=== PATIENT | female | born 2000 | race American Indian/Alaskan Native ===

== ENCOUNTER 2018-12-20 23:10 | Outpatient (CLI) | payer MEDICAID ==
[~2018-12-20 23:10] MED LIST: LACTATED RINGERS 500 ML IV SCH
[2018-12-20] MEDS ORDERED: LACTATED RINGERS 1,000 ML ONE (23:50)
[2018-12-21 00:02] VITALS: BP 128/65
[2018-12-21 00:09] LABS: Amorphous Crystals,Urine Few; Bilirubin,Urine NEG (Negative); Blood,Urine NEG (Negative); Color,Urine Yellow (Yellow); Mucus,Urine FEW /HPF; Protein,Urine <15 mg/dL mg/dL (Negative); Urobilinogen,Urine < 2.0 mg/dL (<2.0)
== END 2018-12-21 01:07 | disposition home or self-care (01) ==
LOC: TRG 23:10
PROVIDERS: ATTEND Obstetrics & Gynecology
DX: O26.893 Other specified pregnancy related conditions, third trimester (principal); R10.9 Unspecified abdominal pain; R05 Cough; O47.03 False labor before 37 completed weeks of gestation, third trimester; J45.909 Unspecified asthma, uncomplicated; Z3A.36 36 weeks gestation of pregnancy
CPT/HCPCS: 81001; J7120; 59025

== ENCOUNTER 2019-01-16 10:25 | Outpatient (CLI) | payer MEDICAID ==
[2019-01-16] MEDS ORDERED: LACTATED RINGERS 1,000 ML ONE (14:06)
[2019-01-16 16:21] VITALS: BP 126/67
--- NOTE | 2019-01-16 16:44 | Ultrasound Report ---
PROCEDURE: US OB BPP WO NON-STRESS HISTORY: CURT FINDINGS: Biophysical profile was performed. Biophysical profile was 8 of 8. cardiac activity is present at 133 bpm. Amniotic fluid index was 11.4 cm which is normal IMPRESSION: Biophysical profile 8 of 8 This document is electronically signed by Marcus Aguayo MD., Jan 16 2019 04:42:22 PM ET
--- NOTE | 2019-01-16 16:45 | Ultrasound Report ---
PROCEDURE: US OB LIMITED HISTORY: CURT FINDINGS: Real-time ultrasound was performed with attention to the gravid uterus. There is a live int rauterine gestation in cephalic lie. cardiac activity is present at 130 bpm. Amniotic fluid index was 11.4 cm. IMPRESSION: Amniotic fluid index 11.4 cm This document is electronically signed by Marcus Aguayo MD., Jan 16 2019 04:43:15 PM ET
[2019-01-16] MEDS ORDERED: LACTATED RINGERS 1,000 ML IV SCH (17:00)
== END 2019-01-16 16:20 | disposition home or self-care (01) ==
LOC: TRG 10:25
PROVIDERS: ATTEND Obstetrics & Gynecology
DX: O42.92 Full-term premature rupture of membranes, unspecified as to length of time between rupture and onset of labor (principal); O48.0 Post-term pregnancy; Z3A.40 40 weeks gestation of pregnancy
CPT/HCPCS: 59025; 76815; 76819; J7120

== ENCOUNTER 2019-01-19 15:40 | Inpatient (IN) | payer MEDICAID ==
[2019-01-19] MEDS ORDERED: ZOFRAN IV PRN (17:15)
[2019-01-19] MEDS ORDERED: BRETHINE SUB-Q PRN (17:15)
[2019-01-19] MEDS ORDERED: SUBLIMAZE IV PRN (17:15)
[2019-01-19] MEDS ORDERED: BRETHINE IVP PRN (17:15)
[2019-01-19] MEDS ORDERED: MINERAL OIL PO PRN (17:15)
[2019-01-19] MEDS ORDERED: NARCAN 0.4 MG/1 ML IV PRN (17:15)
--- NOTE | 2019-01-19 17:54 | History and Physical Report ---
History of Present Illness Date of examination: 01/19/19 Date of admission: 01/19/19 15:40 Chief complaint: Nonreactive NST; sent from the office History of present illness: Pt is a 18 year old primigravida HINA 01/12/19 at 41w0d who presents for induction of labor after nonreactive NST in the office. She denies vaginal bleeding or leakage of fluid. She has had care at [facility] since 11 wks complicated by morbid obesity, asthma, and glucose intolerance. She is GBS negative. Past History Past Medical History: asthma Past Surgical History: no surgical history Social history: no significant social history - Obstetrical History Expected Date of Delivery: 01/12/19 Actual Gestation: 41 Week(s) 0 Day(s) : 1 Medications and Allergies Allergies Allergy/AdvReac Type Severity Reaction Status Date / Time aspirin Allergy Hives Verified 01/15/19 12:21 shellfish derived Allergy Swelling Verified 01/15/19 12:21 Home Medications Medication Instructions Recorded Confirmed Last Taken Type No Known Home Medications [No 01/19/19 01/19/19 Unknown History Reported Home Medications] Active Meds: Active Medications Butorphanol Tartrate (Stadol) 2 mg IV Q2H PRN PRN Reason: Pain , Severe (7-10) Ephedrine Sulfate (Ephedrine Sulfate) 10 mg IV Q2M PRN PRN Reason: Hypotension Fentanyl (Sublimaze) 100 mcg IV Q2H PRN PRN Reason: Labor Pain Oxytocin/Sodium Chloride (Pitocin/Ns 20 Unit/1000ml Drip) 20 units in 1,000 mls @ 125 mls/hr IV DIRECT PARUL Oxytocin/Sodium Chloride (Pitocin/Ns 30 Unit/500ml) 30 units in 500 mls @ 2 mls/hr IV TITR PARUL; Protocol Lactated Ringer's (Lactated Ringers) 1,000 mls @ 125 mls/hr IV DIRECT PARUL Lidocaine (Xylocaine 2%) 20 ml INFILTRATI ONCE ONE Stop: 01/19/19 18:16 Mineral Oil (Mineral Oil) 30 ml PO QHS PRN PRN Reason: Constipation Naloxone HCl (Narcan 0.4 Mg/1 Ml) 0.1 mg IV Q2MIN PRN PRN Reason: Res Rate </= 8 or 02 SAT < 92% Ondansetron HCl (Zofran) 4 mg IV Q8H PRN PRN Reason: Nausea And Vomiting Terbutaline Sulfate (Brethine) 0.25 mg SUB-Q ONCE PRN PRN Reason: Hyperstimulation/Hypertonicity Terbutaline Sulfate (Brethine) 0.25 mg IVP ONCE PRN PRN Reason: Hyperstimulation/Hypertonicity Review of Systems All systems: negative - Vital Signs Vital signs: Vital Signs Pulse BP 101 H 106/59 01/19/19 17:01 01/19/19 17:01 Temp Pulse Resp BP Pulse Ox 101 H 106/59 01/19/19 17:01 01/19/19 17:01 - Physical Exam Breasts: Positive: deferred Cardiovascular: Regular rate Lungs: Positive: Clear to auscultation Abdomen: Positive: soft (obese, gravid ) Genitourinary (Female): Positive: normal external genitalia Uterus: Positive: enlarged (gravid ) Extremities: Positive: edema (1+) - Obstetrical FHR: auscultation normal Uterine Contraction Monitor Mode: External Cervical Dilatation: 0.5 Results All other labs normal. Assessment and Plan A: IUP at 41w0d Nonreactive NST Morbid Obesity Glucose Intolerance GBS Negative P: Admit to labor and delivery for induction of labor. Cervidil for cervical ripening
[2019-01-19] MEDS ORDERED: PITOCin/NS 20 UNIT/1000ML DRIP 20 UNITS/1,000 ML BAG IV SCH (18:00)
[2019-01-19] MEDS ORDERED: XYLOCAINE 2% INFILTRATI ONE (18:15)
[2019-01-19 18:42] LABS: Hematocrit 38.7 % (30.3-42.9); Hemoglobin 12.8 gm/dl (10.1-14.3); Mean Corpuscular HGB Conc 33 % (30-34); Mean Corpuscular Volume 91 fl (79-97); Platelet Count 143 K/mm3 (140-440); Red Blood Count 4.25 M/mm3 (3.65-5.03); Red Cell Distribution Width 13.4 % (13.2-15.2)
[2019-01-19] MEDS ORDERED: CERVIDIL VG ONE (18:58)
[2019-01-20] MEDS: STADOL IV PRN (05:19)
[2019-01-20] MEDS: LACTATED RINGERS 1,000 ML IV SCH (05:20)
--- NOTE | 2019-01-20 07:51 | Progress Note ---
Assessment and Plan A/P IUP 41 weeks postdates IOL for NRNST-currently cat 1 GBS neg s/p cervidil- implement pitocin expect vaginal delivery Subjective - Subjective Date of service: 01/20/19 Principal diagnosis: IOL for NR NST/post dates Patient reports: movement normal, contractions, no new complaints, no loss of fluid, no vaginal bleeding Objective - Vital Signs Vital Signs: Vital Signs - 12hr 01/20/19 01/20/19 03:28 07:19 Pulse Rate 100 H 102 H Blood Pressure 115/56 125/58 - Exam Breasts: normal Cardiovascular: Regular rate, Normal S1 Lungs: Clear to auscultation, Normal air movement Abdomen: Present: normal appearance, soft, normal bowel sounds. Absent: distention, tenderness, guarding Uterus: Present: normal, firm, fundal height above umbilicus. Absent: bogginess, tenderness Cervical Dilatation: 1 Cervical Effacement Percentage: 50 station: -3 Uterine Contraction Pattern: Regular Uterine Contraction Intensity: Mild Extremities: normal Deep Tendon Reflex Grade: Normal +2 - Labs Labs: Laboratory Results - last 24 hr 01/19/19 01/19/19 17:18 18:16 WBC 7.9 RBC 4.25 Hgb 12.8 Hct 38.7 MCV 91 MCH 30 MCHC 33 RDW 13.4 Plt Count 143 Blood Type O POSITIVE Antibody Screen Negative
[2019-01-20] MEDS: PITOCin/NS 30 UNIT/500ML 30 UNITS/500 ML BAG IV SCH (09:08)
[2019-01-20] MEDS ORDERED: CERVIDIL VG ONE (19:30)
--- NOTE | 2019-01-20 21:39 | Ultrasound Report ---
PROCEDURE: US OB FOLLOW UP TECHNIQUE: Real-time limited sonographic examination was performed for evaluation of estimated weight and amniotic fluid index for each fetus with image documentation (1 or more fetuses). HISTORY: estimated weight COMPARISONS: None . FINDINGS: FETUS IUP: Single living intrauterine . Position: Cephalic . Placental position: Fundal with grade 2 maturity, without previa . Amniotic fluid volume: Amniotic fluid index is 8.8 cm Heart rate and rhythm: 135 BPM, Regular . MEASUREMENTS BPD: 9.4 cm corresponding to 38 weeks and 2 days . HC: 33.9 cm corresponding to 39 weeks and 0 days . AC: 35.6 cm corresponding to 39 weeks and 3 days . FL: 7.9 cm corresponding to 40 weeks and 2 days . Mean Gestational Age (composite criteria): 39 weeks and 2 days . Ratio biometry: Normal . Estimated Weight: 3785 grams +/- grams. ounces +/- .ounces. percentile. Interval growth: Appropriate . Estimated Due Date (earliest scan): 01/25/2019 . IMPRESSION: 1. Single living intrauterine gestation at approximately 39 weeks and 2 days . 2. EDC by US 01/25/2019 . This document is electronically signed by Esteban Caballero MD., Jan 20 2019 09:37:18 PM ET
[2019-01-21] MEDS: LACTATED RINGERS 1,000 ML IV SCH (05:07)
--- NOTE | 2019-01-21 10:18 | Progress Note ---
Assessment and Plan A/P IUP 41+ weeks postdates IOL for NRNST-currently cat 1 GBS neg s/p cervidil- implement pitocin patient still at 1cm Proceedure Patient was discussed the plan for continued IOL. We discussed cytotec vs cook catheter and decided to proceed with Cook catheter. Cleansed vagina with betadiene and cook catheter inserted in external os with filling of 454cc and 40 cc in vagina. patient tolerated procedure well. Cat 1 NST Subjective - Subjective Date of service: 01/21/19 Principal diagnosis: IOL for NR NST/post dates Patient reports: movement normal, contractions, no new complaints, no loss of fluid, no vaginal bleeding Objective - Vital Signs Vital Signs: Vital Signs - 12hr 01/21/19 01/21/19 01/21/19 01:37 02:17 03:18 Pulse Rate 100 H 91 H 103 H Blood Pressure 109/57 116/55 120/55 01/21/19 01/21/19 01/21/19 04:16 05:17 06:17 Pulse Rate 99 H 104 H 97 H Blood Pressure 117/56 119/58 101/51 01/21/19 01/21/19 07:16 09:50 Pulse Rate 89 101 H Blood Pressure 109/53 118/56 - Exam Breasts: normal Cardiovascular: Regular rate, Normal S1 Lungs: Clear to auscultation, Normal air movement Abdomen: Present: normal appearance, soft, normal bowel sounds. Absent: distention, tenderness, guarding Uterus: Present: normal, firm, fundal height above umbilicus. Absent: bogginess, tenderness FHR: category 1 Cervical Dilatation: 1 Cervical Effacement Percentage: 50 station: -3 Uterine Contraction Pattern: Irregular Uterine Tone Measurement Phase: Resting Uterine Contraction Intensity: Mild Extremities: normal Deep Tendon Reflex Grade: Normal +2 - Labs Labs: Laboratory Results - last 24 hr 01/19/19 18:16 RPR Nonreactive
[2019-01-21] MEDS: STADOL IV PRN (10:20)
[2019-01-21] MEDS: PITOCin/NS 30 UNIT/500ML 30 UNITS/500 ML BAG IV SCH (10:29)
[2019-01-21] MEDS ORDERED: REGLAN IV ONE (13:35)
[2019-01-21] MEDS ORDERED: PEPCID IV ONE (13:35)
[2019-01-21] MEDS ORDERED: BICITRA PO ONE (13:35)
[2019-01-21] MEDS ORDERED: CYTOTEC PR ONE (13:36)
--- NOTE | 2019-01-21 13:43 | Event Note ---
Date: 01/21/19 Patient was discussed plan.. She was discussed to continue IOL. Patient declines continuing and desires to proceed with csec. R/B?A which include bleeding infection, damage to pelvic and non pelvic organs risk of hysterectomy and . Will proceed for failed IOL and suspect macrosomia.
[2019-01-21] MEDS ORDERED: ceFAZolin 3 GM in NACL 0.9% 100 ML IV NR (13:45)
[2019-01-21] MEDS ORDERED: BICITRA ONE (13:49)
[2019-01-21] MEDS ORDERED: REGLAN ONE (13:50)
[2019-01-21] MEDS ORDERED: ANCEF/STERILE WATER 2 GM/20 ML 2 GM/20 ML SYRINGE IV ONE (13:50)
[2019-01-21] MEDS ORDERED: PITOCin/NS 20 UNIT/1000ML DRIP 20 UNITS/1,000 ML BAG IV SCH ×2 (14:00→16:00)
[2019-01-21] MEDS ORDERED: LACTATED RINGERS 1,000 ML IV SCH (14:00)
[2019-01-21] MEDS ORDERED: SUBLIMAZE ONE (14:13)
[2019-01-21] MEDS ORDERED: ANCEF/STERILE WATER 2 GM/20 ML IV ONE (14:40)
[2019-01-21] MEDS ORDERED: LANSINOH TP PRN (15:44)
[2019-01-21] MEDS ORDERED: TORADOL IV PRN ×2 (15:44)
[2019-01-21] MEDS ORDERED: ANUCORT-HC PR PRN (15:44)
[2019-01-21] MEDS ORDERED: NARCAN 0.4 MG/1 ML IV PRN ×2 (15:44→16:01)
[2019-01-21] MEDS ORDERED: MILK OF MAGNESIA PO PRN (15:44)
[2019-01-21] MEDS ORDERED: MORPHINE IV PRN (15:44)
[2019-01-21] MEDS ORDERED: TUCKS PAD TP PRN (15:44)
[2019-01-21] MEDS ORDERED: ZOFRAN IV PRN (15:44)
[2019-01-21] MEDS ORDERED: SENOKOT PO PRN (15:44)
[2019-01-21] MEDS ORDERED: MYLICON PO PRN (15:44)
[2019-01-21] MEDS ORDERED: PHENERGAN PR PRN (15:44)
[2019-01-21] MEDS ORDERED: TYLENOL PR PRN (15:44)
--- NOTE | 2019-01-21 15:44 | Procedure Note ---
OB Delivery Note - Delivery Date of Delivery: 01/21/19 Surgeon: ROCAEL RODRIGUEZ Estimated blood loss: other (700cc) - Section Preop diagnosis: arrest of descent, other (Failed IOL ) section procedure: section Disposition: PACU Complications: none Narrative: see op note - A at 1 minute: 8 at 5 minutes: 9 Gender: Female (9 pounds 2 oz)
--- NOTE | 2019-01-21 15:49 | Operative Report ---
Operative Report Operative Report: Date of procedure: January 21, 2019 Preoperative diagnosis: 1) IUP at 41+2 weeks 2)Morbid obesity 3) Failed IOL Postoperative diagnosis: Same Procedure: 1) Primary Surgeon: Tanesha Snow MD Anesthesia: Regional Findings: 1) Viable female , Apgars 8 and 9, weight 4127g (9 lb 2 oz) in cephalic presentation 2) Normal-appearing uterus ovaries and tubes Estimated blood loss: 700 mL IV fluids: see anesthesia note Urine output: 100 mL, clear at the end of the procedure Drains: Saini to gravity Specimens: Placenta to pathology Complications: None. Counts correct x 3 Disposition: Stable to PACU Indication for procedure: Patient is a 18-year-old at 41 weeks here for IOL. For two days despite cervidilx 2, pitocin and cook catheter did not progress further than 1cm. At that time she stated that she was tiered and wanted to proceed with primary . Operation in detail: After the risks, benefits, alternatives and complications were explained to the patient she gave informed consent for the procedure. She was subsequently taken to the operating room where regional anesthesia was noted to be adequate. She was subsequently placed in the dorsal supine position with leftward tilt and prepped and draped in a normal sterile fashion. A timeout was performed. A Pfannenstiel skin incision was made with the knife and carried down to the layer of the fascia with the Bovie. The fascia was incised in the midline and the fascial incision was extended bilaterally with the Bovie. Attention was then turned to the superior aspect of the incision which was grasped with two Kochers, tented up, and dissected off the rectus muscles. Attention was then turned to the inferior aspect of the incision which was grasped with two Kochers, tented up and dissected off the rectus muscles. The rectus muscles were then in the midline and partially transected for adequate vi sualization. The peritoneum was then entered bluntly. The peritoneal incision was extended with good visualization of the bladder. The peritoneal incision was then stretched. The bladder blade was placed. The vesicouterine peritoneum was grasped with smooth pickups and incised with Metzenbaum scissors. Metzenbaum scissors were used to extend the incision bilaterally. The bladder flap was then created digitally and the bladder blade was replaced. A transverse incision was made in the lower uterine segment with a knife and extended bilaterally with the bandage scissors. The head was delivered without difficulty followed by shoulders and body. was bulb suctioned at delivery. The cord was clamped and cut and the was handed to NICU staff in attendance. Cord blood was collected. The placenta was then delivered manually. The uterus was then exteriorized and cleared of all clots and debris. The hysterotomy was then reapproximated with 0 Vicryl in a running locked fashion. A second layer of the same suture was used in imbricating fashion. Additional [id number] 0 Vicryl were used to obtain hemostasis. The hysterotomy was inspected and hemostasis was noted. Surgicell and tissel used for great hemostasis. The uterus was returned to the peritoneal cavity and the gutters were irrigated and cleared of all clots and debris. The hysterotomy was again inspected and noted to be hemostatic.I The peritoneum was reapproximated with 2- 0 Vicryl in a running fashion incorporating the rectus muscles. The fascia was reapproximated with 0 Vicryl in a running fashion. The subcutaneous tissue was reapproximated with 3-0 Vicryl in a running fashion The skin was reapproximated bg. The incision was then covered with steri strips and a pressure dressing. The procedure was then ended. The patient tolerated the procedure well and was taken to the PACU in stable condition. All instrument, lap, and needle counts were correct 3.
[2019-01-21] MEDS ORDERED: PROVENTIL IH ONE (15:59)
[2019-01-21] MEDS ORDERED: SODIUM CHLORIDE FLUSH SYRINGE 10 ML IV NR ×2 (16:00→17:00)
--- NOTE | 2019-01-21 16:04 | Post Anesthesia Evaluation ---
- Post Anesthesia Evaluation Patient Participated: Yes Airway Patent: Yes Stable Respiratory Function: Yes Nausea/Vomiting: No Temp > 96.8F: Yes Pain Manageable: Yes Adequeate Hydration: Yes Anesthesia Complications: No Block Receding Appropriately: Yes (Currently at T10) Patient on Ventilator: No
[2019-01-21] MEDS: MORPHINE IV PRN ×2 (18:01→22:44)
[2019-01-21 19:40] LABS: Basophils % (Auto) 0.3 % (0.0-1.8); Eosinophils # (Auto) 0.1 K/mm3 (0.0-0.4); Hematocrit 36.8 % (30.3-42.9); Hemoglobin 12.4 gm/dl (10.1-14.3); Lymphocytes % (Auto) 11.2 % (13.4-35.0); Mean Corpuscular HGB Conc 34 % (30-34); Mean Corpuscular Volume 91 fl (79-97); Monocytes # (Auto) 0.6 K/mm3 (0.0-0.8); Monocytes % (Auto) 6.2 % (0.0-7.3); Platelet Count 147 K/mm3 (140-440); Red Blood Count 4.07 M/mm3 (3.65-5.03); Red Cell Distribution Width 13.1 % (13.2-15.2)
[2019-01-21] MEDS: PERCOCET 5/325 PO PRN (19:52)
[2019-01-21] MEDS: D5LR 1,000 ML IV SCH (22:31)
[2019-01-22] MEDS: PERCOCET 5/325 PO PRN ×4 (02:12→22:46)
[2019-01-22 04:44] LABS: Hematocrit 32.7 % (30.3-42.9)
[2019-01-22] MEDS: NORCO 5/325 PO PRN (06:26)
--- NOTE | 2019-01-22 07:02 | Progress Note ---
Assessment and Plan A/P POD 1 s/p csec for failed IOL and macrosomia routine postop care doing well Subjective - Subjective Date of service: 01/22/19 Principal diagnosis: IOL for NR NST/post dates Patient reports: appetite normal, voiding normally, pain well controlled, flatus, ambulating normally [place]: doing well Objective - Vital Signs Latest vital signs: Vital Signs Temp Pulse Pulse Resp Resp BP BP 01/22/19 06:26 18 01/22/19 03:58 98.8 F 117 H 18 111/57 01/22/19 03:12 18 01/22/19 02:12 18 01/22/19 00:10 97.6 F 104 H 18 115/61 01/21/19 23:14 18 01/21/19 22:44 18 01/21/19 20:52 18 01/21/19 20:30 97.8 F 99 H 20 129/71 01/21/19 19:52 18 01/21/19 18:01 14 01/21/19 17:48 98.4 F 95 H 20 131/79 01/21/19 17:00 97.9 F 76 14 145/88 01/21/19 16:45 91 H 14 128/82 01/21/19 16:30 97 H 125/84 01/21/19 16:22 71 16 01/21/19 16:15 78 136/80 01/21/19 16:14 95 H 16 01/21/19 16:10 89 14 142/90 01/21/19 16:05 94 H 140/71 01/21/19 16:00 97.6 F 94 H 14 131/73 01/21/19 13:30 97.9 F 14 01/21/19 12:15 97.9 F 14 01/21/19 11:51 98 H 108/54 01/21/19 10:20 14 01/21/19 09:50 101 H 118/56 01/21/19 08:00 14 01/21/19 07:16 89 109/53 Pulse Ox 01/22/19 06:26 01/22/19 03:58 96 01/22/19 03:12 01/22/19 02:12 01/22/19 00:10 99 01/21/19 23:14 01/21/19 22:44 01/21/19 20:52 01/21/19 20:30 97 01/21/19 19:52 01/21/19 18:01 01/21/19 17:48 96 01/21/19 17:00 100 01/21/19 16:45 01/21/19 16:30 01/21/19 16:22 01/21/19 16:15 01/21/19 16:14 100 01/21/19 16:10 01/21/19 16:05 01/21/19 16:00 01/21/19 13:30 01/21/19 12:15 01/21/19 11:51 01/21/19 10:20 01/21/19 09:50 01/21/19 08:00 01/21/19 07:16 Intake and Output 01/21/19 01/21/19 01/22/19 15:59 23:59 07:59 Intake Total 2102.284 500 240 Output Total 643 626 9747 Balance 1902.284 150 -1160 Intake: IV 2102.284 500 PITOCin/NS 30 UNIT/500ML 102.284 30 units In 500 ml @ 2 mls/hr IV TITR PARUL Rx#: [id number] Intake, Free Water 240 Output: Urine 774 910 8698 Indwelling Catheter 1400 Other: Total, Output Amount 500 Estimated Blood Loss 700 - Exam Breasts: Present: normal Cardiovascular: Present: Regular rate, Normal S1 Lungs: Present: Clear to auscultation, Normal air movement Abdomen: Present: normal appearance, soft, normal bowel sounds. Absent: distention, tenderness, guarding Vulva: both: normal Uterus: Present: normal, firm, fundal height below umbilicus. Absent: bogginess, tenderness Extremities: Present: normal Deep Tendon Reflex Grade: Normal +2 Incision: Present: normal, dry, intact - Labs Labs: Abnormal lab results 01/21/19 Range/Units 18:57 RDW 13.1 L (13.2-15.2) % Lymph % (Auto) 11.2 L (13.4-35.0) % Lymph # 1.0 L (1.2-5.4) K/mm3 Seg Neutrophils % 81.3 H (40.0-70.0) %
[2019-01-22] MEDS: IBUPROFEN PO PRN ×3 (09:04→22:45)
[2019-01-22] MEDS: FEOSOL PO SCH (10:27)
[2019-01-22] MEDS: D5LR 1,000 ML IV SCH (10:28)
[2019-01-22] MEDS ORDERED: BENADRYL IV ONE (13:00)
[2019-01-22] MEDS ORDERED: BOOSTRIX IM ONE (15:46)
[2019-01-22] MEDS ORDERED: M-M-R II VACCINE SUB-Q ONE (15:46)
[2019-01-23] MEDS: PERCOCET 5/325 PO PRN ×2 (08:00→13:00)
[2019-01-23] MEDS: IBUPROFEN PO PRN ×2 (08:01→18:13)
--- NOTE | 2019-01-23 09:16 | Progress Note ---
Assessment and Plan A/P POD 2 s/p csec for failed IOL and macrosomia routine postop care doing well consider d/c home tomorrow Subjective - Subjective Date of service: 01/23/19 Principal diagnosis: IOL for NR NST/post dates Patient reports: appetite normal, voiding normally, pain well controlled, flatus, ambulating normally [place]: doing well Objective - Vital Signs Latest vital signs: Vital Signs Temp Pulse Resp BP Pulse Ox 01/23/19 00:55 98.4 F 99 H 20 105/62 96 01/22/19 23:46 18 01/22/19 23:45 18 01/22/19 22:46 18 01/22/19 22:45 18 01/22/19 17:07 20 01/22/19 17:06 20 01/22/19 16:37 98.8 F 107 H 24 109/62 97 01/22/19 13:07 98.5 F 104 H 20 123/61 97 01/22/19 10:05 20 01/22/19 10:04 20 01/22/19 09:35 106 H Intake and Output 01/22/19 01/23/19 01/23/19 23:59 07:59 15:59 Intake Total 480 Output Total 1 Balance -1 480 Intake: Oral 480 Output: Urine 1 Void 1 Other: Total, Intake Amount 480 Total, Output Amount 1 # Voids Void 3 # Bowel Movements 1 - Exam Breasts: Present: normal Cardiovascular: Present: Regular rate, Normal S1 Lungs: Present: Clear to auscultation, Normal air movement Abdomen: Present: normal appearance, soft, normal bowel sounds. Absent: distention, tenderness, guarding Uterus: Present: normal, firm, fundal height below umbilicus. Absent: bogginess, tenderness Extremities: Present: normal Deep Tendon Reflex Grade: Normal +2 Incision: Present: normal, dry, intact
[2019-01-23] MEDS: FEOSOL PO SCH (10:17)
[2019-01-23] MEDS: NORCO 5/325 PO PRN (21:22)
[2019-01-24] MEDS: PERCOCET 5/325 PO PRN ×2 (01:59→08:35)
[2019-01-24] MEDS: IBUPROFEN PO PRN ×2 (01:59→08:32)
[2019-01-24 08:04] VITALS: BP 108/59
--- NOTE | 2019-01-24 08:22 | Progress Note ---
Assessment and Plan A: POD#3 s/ primary section at term, Morbid Obesity P: Routine care. Discharge today with follow up in 1 week for staple removal. Subjective - Subjective Date of service: 01/24/19 Principal diagnosis: s/p primary Interval history: Patient without complaints. Post flatus and bowel movement. Decreasing lochia. Patient reports: appetite normal, voiding normally, pain well controlled, flatus, bowel movement, ambulating normally : doing well Objective - Vital Signs Latest vital signs: Vital Signs Temp Pulse Resp BP BP Pulse Ox 01/24/19 07:27 98.1 F 94 H 16 108/59 97 01/24/19 02:59 18 01/24/19 01:42 98.3 F 18 112/67 01/24/19 01:38 98.3 F 93 H 18 112/67 97 01/23/19 22:22 18 01/23/19 21:22 18 01/23/19 19:13 18 01/23/19 16:17 98.4 F 18 114/57 01/23/19 10:38 97 Intake and Output 01/23/19 01/24/19 01/24/19 22:59 06:59 14:59 Intake Total 380 360 Balance 380 360 Intake: Oral 380 Intake, Free Water 360 Other: Total, Intake Amount 380 # Voids Void 2 2 # Bowel Movements 1 - Exam Breasts: Present: deferred Cardiovascular: Present: Regular rate Lungs: Present: Clear to auscultation Abdomen: Present: soft (obese, ), normal bowel sounds Uterus: Present: fundal height below umbilicus Extremities: Present: edema (trace) Incision: Present: intact (with bg )
--- NOTE | 2019-01-24 08:24 | Discharge Summary ---
Providers - Providers Date of Admission: 01/19/19 15:40 Date of discharge: 01/24/19 Attending physician: RIANNA MARRERO Primary care physician: JOSE ROBERTO STEWART Hospitalization Reason for admission: induction of labor Delivery: Procedure: section, primary low transverse Procedure details: Please see operative report. Incision: intact Other procedures: none complications: none Discharge diagnosis: IUP at term delivered baby: female Hospital course: The patient was admitted for induction of labor and ultimately underwent a primary section was tolerated well. Her postoperative course uncomplicated and she met discharge criteria on postoperative day #3. She'll follow-up in [address] Marrero for staple removal in the office. Condition at discharge: Stable Disposition: DC-01 TO HOME OR SELFCARE - Discharge Diagnoses (1) Term of female Status: Acute (2) S/P section Status: Acute (3) Morbid obesity Status: Acute Plan - Discharge Medications Prescriptions: Ibuprofen [Motrin] 600 mg PO Q8H PRN #30 tablet PRN Reason: Pain oxyCODONE /ACETAMINOPHEN [Percocet 5/325] 1 tab PO Q6HR PRN #30 tablet PRN Reason: Pain - Provider Discharge Summary Activity: routine, no sex for 6 weeks, no heavy lifting 4 weeks, no strenuous exercise Diet: routine Instructions: routine Additional instructions: [] Smoking cessation referral if applicable(refer to patient education folder for contact #) [] Refer to [facility] Booklet Call your doctor immediately for: * Fever > 100.5 * Heavy vaginal bleeding ( >1 pad per hour) * Severe persistent headache * Shortness of breath * Reddened, hot, painful area to leg or breast * Drainage or odor from incision. * Keep incision clean and dry at all times and follow doctor's instructions regarding bathing/showering - Follow up plan Follow up: RIANNA MARRERO MD [Staff Physician] - 01/31/19 (Please call to schedule appt for staple removal )
[2019-01-24] MEDS: FEOSOL PO SCH ×2 (09:37→09:39)
== END 2019-01-24 13:30 | disposition home or self-care (01) | DRG 766 ==
LOC: LD 15:40 → OB 01-21 17:19
PROVIDERS: ADMIT Obstetrics & Gynecology; ATTEND Obstetrics & Gynecology
PROC: 10D00Z1 Extraction of Products of Conception, Low, Open Approach (ICD-10-PCS; principal; 2019-01-21)
PROC: 3E0234Z Introduction of Serum, Toxoid and Vaccine into Muscle, Percutaneous Approach (ICD-10-PCS; 2019-01-22)
DX: O99.214 Obesity complicating childbirth (principal); E66.01 Morbid (severe) obesity due to excess calories; O48.0 Post-term pregnancy; O36.63X0 Maternal care for excessive fetal growth, third trimester, not applicable or unspecified; O99.52 Diseases of the respiratory system complicating childbirth; O99.814 Abnormal glucose complicating childbirth; O62.1 Secondary uterine inertia; J45.909 Unspecified asthma, uncomplicated; O61.9 Failed induction of labor, unspecified; Z37.0 Single live birth; Z3A.41 41 weeks gestation of pregnancy; Z71.3 Dietary counseling and surveillance; Z88.6 Allergy status to analgesic agent; Z91.013 Allergy to seafood; Z23 Encounter for immunization
CPT/HCPCS: 36415; 59025; 76815; 76816; 76819; 85014; 85018; 85025; 85027; 86592; 86850; 86900; 86901; 94640; G0378; C1765; J0595; J0690; J1200; J1885; J2270; J2590; J2765; J3010; J7120; J7121